=== PATIENT | female | born 1985 | race African-American/Black ===

== ENCOUNTER 2017-08-19 07:58 | Day surgery (SDC) | payer MEDICAID, OTHER ==
[2017-08-19] VITALS (10 sets, daily range): BP systolic 111–134; BP diastolic 67–91; PULSE 76–96; RESP 13–35; Ht 160 cm; Wt 65.1 kg
[~2017-08-19] VITALS: Ht 160 cm; Wt 65.1 kg
[~2017-08-19 07:58] MED LIST: BUDE0.5A6; FERR27TA; PREN-39
[2017-08-19] MEDS ORDERED: ACETAMINOPHEN 325 MG TAB PO PRN (08:00)
[2017-08-19] MEDS ORDERED: HYDROCODONE/APAP (5/325) TAB PO PRN (08:00)
[2017-08-19] MEDS ORDERED: FLUT1BLS INHALATION (08:44)
[2017-08-19] MEDS ORDERED: GABA300C16 PO (08:45)
[2017-08-19] MEDS ORDERED: TIOT18CA INHALATION (08:45)
[2017-08-19] MEDS ORDERED: ESOM40CA PO (08:46)
[2017-08-19] MEDS ORDERED: METO-335 PO (08:46)
[2017-08-19] MEDS ORDERED: LISI2.5T59 PO (08:46)
[2017-08-19] MEDS ORDERED: ZOF8 PO (08:47)
[2017-08-19] MEDS ORDERED: MIRT15TA5 PO (08:47)
[2017-08-19] MEDS ORDERED: LORA1TAB PO (08:48)
[2017-08-19] MEDS ORDERED: TIZA4TAB PO (08:49)
[2017-08-19] MEDS ORDERED: MONT10TA21 PO (08:51)
[2017-08-19] MEDS ORDERED: SACC250C PO (08:51)
[2017-08-19] MEDS ORDERED: DIVA250T4 PO (08:52)
[2017-08-19] MEDS ORDERED: ENOX60DI13 SQ (08:53)
[2017-08-19] MEDS ORDERED: DOCU-144 PO (09:08)
[2017-08-19] MEDS ORDERED: FER325 PO (09:08)
[2017-08-19] MEDS ORDERED: GUAI120011 PO (09:09)
[2017-08-19] MEDS ORDERED: MAGN400O4 PO (09:10)
[2017-08-19] MEDS ORDERED: DICY10CA60 PO (09:12)
[2017-08-19] MEDS ORDERED: LEVA0.3112 INHALATION (09:13)
[2017-08-19] MEDS ORDERED: IPRA12.93 INHALATION (09:20)
--- NOTE | 2017-08-19 09:29 | HPN ---
Date/Time of Note Date/Time of Note DATE: 08/19/17 TIME: 09:29 Interval H&P Admission Note Pt. seen H&P reviewed: No system changes DAQUAN VASQUEZ MD Aug 19, 2017 09:29
--- NOTE | 2017-08-19 09:30 | SIPON ---
Date/Time of Note Date/Time of Note DATE: 08/19/17 TIME: 09:29 Operative Report Preoperative Diagnosis chronic sinusitis Postoperative Diagnosis same Operation/Procedure Performed Bilateral endoscopic sinus surgery Surgeon see signature line kindergarten assistant n/a Anesthesia: general Estimated blood loss: 50 - 100 ml's Transfusion Required none Specimen bilateral contour stents Grafts/Implants none Complications none DAQUAN VASQUEZ MD Aug 19, 2017 09:30
[2017-08-19] MEDS ORDERED: FENTAnyl 50 MCG/ML VIAL ONE (11:07)
[2017-08-19] MEDS ORDERED: PROPOFOL 20 ML ONE (11:07)
[2017-08-19] MEDS ORDERED: ONDANSETRON 4 MG INJ ONE (11:07)
[2017-08-19] MEDS ORDERED: ROCURONIUM 50 MG INJ ONE (11:07)
[2017-08-19] MEDS ORDERED: SUCCINYLCHOLINE CHLORIDE 100 MG/5 ML SYG IV ONE (11:07)
[2017-08-19] MEDS ORDERED: DEXAMETHASONE 4 MG/ML 1 ML INJ ONE (11:08)
[2017-08-19] MEDS ORDERED: LIDOCAINE 2%/EPI 30 ML INJ ONE (11:56)
[2017-08-19] MEDS ORDERED: OXYMETAZOLINE 0.05% 15 ML NAS SPRAY NASAL ONE (11:57)
[2017-08-19] MEDS ORDERED: FENTAnyl 50 MCG/ML VIAL IV PRN ×2 (13:00)
[2017-08-19] MEDS ORDERED: MEPERIDINE 25 MG INJ IV PRN (13:00)
[2017-08-19] MEDS ORDERED: HYDROmorphONE (0.2 MG/ML) 10ML SYG IV PRN ×3 (13:00)
[2017-08-19] MEDS ORDERED: ONDANSETRON 4 MG INJ IV PRN (13:00)
--- NOTE | 2017-08-19 15:37 | OPR ---
DATE OF OPERATION: PREOPERATIVE DIAGNOSIS: sinusitis. POSTOPERATIVE DIAGNOSIS: sinusitis. PROCEDURE: Bilateral frontal sinusotomy, bilateral anterior and posterior ethmoidectomy, bilateral maxillary antrostomy, left endoscopic sphenoidotomy. SURGEON: Angel Franco MD. ANESTHESIA: General. COMPLICATIONS: None. ESTIMATED BLOOD LOSS: Minimal. PROCEDURE IN DETAIL: Informed consent was obtained. The patient was brought to the operating room , placed in supine position. General anesthesia induced. The nose injected with 1% lidocaine with 1:100,000 epinephrine and packed with Afrin soaked nasal gauze. After sufficient period of time had elapsed, the patient was prepped and draped in standard fashion. [employer] navigation was used. A ttention was first turned to the right side of the nose. A 0 degree nasal endoscope was introduced into the right nasal cavity using balloon sinuplasty equipment. We were easily able to cannulate th e front nasal duct and dilate up to a pressure of 12 bars. The anterior ethmoidectomies were then p erformed using the shaver and reopened up into the posteriorly as well. I was then able to cannulat e the maxillary sinus and dilate up to a pressure of 12 bars. Contour was placed within the right f rontonasal duct on the left side, where it appeared there has been prior procedure. Using navigatio n, we were able to orient ourselves and once it was understood where the residual middle turbinate w as, I was able to use a shaver to dissect out some polypoid tissue. I was then able to use a [place] to medialize the middle turbinate remnant. I was then able to perform a standard anterior and poste rior ethmoidectomy using the shaver. I was then able to cannulate the frontal nasal duct and dilate up to a pressure of 12 bars. The maxillary sinus was also cannulated and the duct was dilated up to a pressure of 12 bars. Contour was placed within the frontonasal duct. I was then easily able to c annulate the sphenoid sinus and dilate up to a pressure of 12 bars. At this point there was minimal oozing. The patient was then awakened and transferred to recovery room in stable condition. Dictated By: ANGEL GLORIA/ENRRIQUE Conf#: [id number] [facility]#: [id number]
== END 2017-08-19 15:25 | disposition home or self-care (01) ==
LOC: SDS 07:58
PROVIDERS: ATTEND Otolaryngology
DX: J32.9 Chronic sinusitis, unspecified (principal); I10 Essential (primary) hypertension; J45.909 Unspecified asthma, uncomplicated; K21.9 Gastro-esophageal reflux disease without esophagitis
CPT/HCPCS: 31090; 84703; J1100; J2405; J3010; Z7512; Z7610